=== PATIENT | male | born 1995 | race Two or more races ===

== ENCOUNTER 2020-12-05 19:08 | Emergency (ER) | payer OTHER ==
[~2020-12-05] VITALS: Ht 182.9 cm; Wt 90.7 kg
[2020-12-05] MEDS ORDERED: SYNTHROID88 MCG (19:36)
== END 2020-12-05 21:42 | disposition home or self-care (01) ==
LOC: ER 19:08
DX: S61.215A Laceration without foreign body of left ring finger without damage to nail, initial encounter (principal); X58.XXXA Exposure to other specified factors, initial encounter; Y93.89 Activity, other specified; Y92.89 Other specified places as the place of occurrence of the external cause

== ENCOUNTER 2020-12-19 11:05 | Emergency (ER) | payer OTHER ==
[~2020-12-19] VITALS: Ht 182.9 cm; Wt 108.9 kg
[~2020-12-19 11:05] MED LIST: SYNTHROID88 MCG
== END 2020-12-19 13:18 | disposition home or self-care (01) ==
LOC: EMR PED 11:05 → ER 11:05
DX: Z48.02 Encounter for removal of sutures (principal)